=== PATIENT | female | born 1955 | race Hispanic/Latino ===

== ENCOUNTER 2017-02-03 15:25 | Inpatient (IN) | payer OTHER ==
[2017-02-03 15:28] VITALS: BMI 28.3
[2017-02-03 16:17] LABS: ADD MANUAL DIFF? NO
[2017-02-03 16:26] LABS: BASO # 0.03 K/mm3 (0.0-2.0); BASO % 0.4 % (0.0-3.0); EOS # 0.3 (0.0-0.7); EOS % 3.3 % (1.5-5.0); GRAN % 59.3 % (50.0-68.0); HEMATOCRIT 42.4 % (36.0-48.0); LYMPH # 2.5 (1.2-3.4); MEAN CELL VOLUME 86.9 fL (80.0-105.0); MEAN CORPUSCULAR HEMOGLOBIN 28.9 pg (25.0-35.0); MEAN CORPUSCULAR HGB CONC 33.3 g/dl (31.0-37.0); MONO # 0.5 (0.1-0.6); PLATELET COUNT 183 10^3/uL (120.0-450.0); RED CELL DISTRIBUTION WIDTH 13.6 % (11.5-14.5); WHITE BLOOD COUNT 8.1 10^3/ul (4.5-11.0)
[2017-02-03 16:36] LABS: ALB/GLOB RATIO 1.3 (1.1-1.8); ALKALINE PHOSPHATASE 63 U/L (38-133); ALT/SGPT 57 U/L (7-56); AST/SGOT 40 U/L (15-39); BILIRUBIN,TOTAL 0.8 mg/dL (0.2-1.3); BLOOD UREA NITROGEN 14 mg/dL (7-21); CALCIUM 9.6 mg/dL (8.4-10.5); CARBON DIOXIDE 28 mmol/L (21-33); CHLORIDE 102 mmol/L (98-107); GFR AFRICAN-AMERICAN > 60; GLUCOSE,RANDOM 91 mg/dL (70-110); POTASSIUM 3.9 mmol/L (3.6-5.0); SODIUM 141 mmol/L (132-148)
[2017-02-03] MEDS ORDERED: Ceftaroline 600 MG in Sodium Chloride 0.9% 100 ML IVPB STA (16:47)
--- NOTE | 2017-02-03 17:06 | ED PDOC ---
Arrival/HPI - General Chief Complaint: Weakness/Neurological Deficit Time Seen by Provider: 02/03/17 15:37 Historian: Patient - History of Present Illness Narrative History of Present Illness (Text): 02/03/17 17:01 Patient is a 61 yo female who presents to ED with swelling to her face that has progressively worsened. Patient states that 5 days ago on Wednesday she notice a "bump" described as being similar to a pimple to the left side of the bridge of her nose. Denies injury or trauma. Denied visual symptoms or pain with eye movements. States the following day on Wednesday she developed swelling around her left eye, reported a small amount of drainage from the "bump" when she squeezed it. She started to take Augmentin twice a day that day. The following day on Wednesday, she saw her eye doctor as she has a history of ductal blockages reportedly. At that time swelling around left eye had worsened. The next day on Wednesday, she saw a local infectious disease specialist and strated Tetracycline. This morning she woke up and had swelling now to right side of orbit/face. She also states she felt "a little groggy". She denied headache, denies pain with eye movements, denies nasal discharge or bleeding, denies sore throat. Denies numbness or weakness or unsteadiness. Denies chills. Denies nausea or vomiting. Past Medical History - Infectious Disease Hx of Infectious Diseases: None - Cardiac Hx Hypertension: Yes - Psychiatric Hx Substance Use: No - Surgical History Hx Mastectomy: Yes (R) - Anesthesia Hx Anesthesia Reactions: No Hx Malignant Hyperthermia: No Family/Social History Family/Social History: Unknown Family HX Smoking Status: Former Smoker Hx Alcohol Use: Yes Frequency of alcohol use: Socially Hx Substance Use: No Allergies/Home Meds Allergies/Adverse Reactions: Allergies codeine Allergy (Verified 02/03/17 15:28) SHORTNESS OF BREATH Home Medications: Home Meds Medication Instructions Recorded Confirmed Amoxicillin/Clavulanate [Augmentin 875 mg PO BID 02/03/17 02/03/17 875 MG-125 MG Tab] Loratadine [Claritin] 10 mg PO DAILY 02/03/17 02/03/17 Tetracycline HCl 100 mg PO BID 02/03/17 02/03/17 Valsartan [Diovan] 80 mg PO DAILY 02/03/17 02/03/17 Review of Systems - Review of Systems Constitutional: Fatigue. absent: Fevers Eyes: absent: Vision Changes, Photophobia, Eye Pain ENT: Other (redness and swelling to left nasal bridge). absent: Hearing Changes , Sore Throat Respiratory: absent: SOB Cardiovascular: absent: Chest Pain, ALMANZA Gastrointestinal: absent: Abdominal Pain Musculoskeletal: absent: Back Pain Skin: Skin Lesions, Cellulitis Neurological: absent: Headache, Dizziness, Focal Weakness Endocrine: absent: Polydipsia Physical Exam - Physical Exam Narrative Physical Exam (Text): Head: Atraumatic. Normocephalic. Eyes: PERRL. EOMI. Conjunctivae are not pale or injected. No drainage. No tearing. NO PAIN WITH EYE MOVEMENTS. NO LIMITATIONS WITH EYE MOVEMENTS. No proptosis. Visual acuity at baseline. ENT: Mucous membranes are moist and intact. Oropharynx is clear and symmetric. No drooling. No nasal discharge. There is erythema with 5mm firm lesion with no active drainage noted to left of nasal bridge, there is surrounding erythema and edema of the left orbit, as well as right periorbital region. No proptosis. Neck: Supple. Full ROM. No JVD. Cervical lymphadenopathy palpated. Cardiovascular: Regular rate. Regular rhythm. No murmurs, rubs, or gallops. Distal pulses are 2+ and symmetric. Pulmonary/Chest: No evidence of respiratory distress. Extremities: No edema. Skin: Skin exam as above in ENT exam. Neurological: Alert, awake, and oriented to person, place, time, and situation. Normal speech. No facial droop. No cranial nerve deficits. Psychiatric: Good eye contact. Normal interaction, affect, and behavior. 02/03/17 17:09 Vital Signs Reviewed: Yes Vital Signs Temp Pulse Resp BP Pulse Ox 02/03/17 20:15 17 112/73 99 02/03/17 15:26 97.6 F 67 16 146/79 98 Temperature: Afebrile Appearance: Positive for: Non-Toxic Pain Distress: Mild Medical Decision Making ED Course and Treatment: 02/03/17 17:17 Patient with findings consistent with periorbital cellulitis. Currently afebrile although patient has been taking Augmentin and Tetracycline with worsening of symptoms and redness. CT orbits ordered, have consulted ID, and Jude recommended. CT pending. 02/03/17 17:38 CT findings reviewed, suggestive of bilateral periorbital cellulitis, left greater than right. Due to FAILURE OF OUTPATIENT THERAPY and worsening of symptoms, patient will be admitted for infectious disease consultation and iv antibiotics. Case d/w Dr. Elizabeth Kumari, accepts patient to his service. - Lab Interpretations Microbiology Results: Microbiology Results 02/03/17 17:00 Blood Blood Culture - Final NO GROWTH AFTER 5 DAYS 02/03/17 17:00 Blood Gram Stain - Final TEST NOT PERFORMED 02/03/17 16:00 Blood Blood Culture - Final NO GROWTH AFTER 5 DAYS 02/03/17 16:00 Blood Gram Stain - Final TEST NOT PERFORMED 02/03/17 16:21 Face Gram Stain - Final 02/03/17 16:21 Face Wound Culture - Final No growth. Lab Results: 02/03/17 16:00 02/03/17 16:00 Lab Results 02/03/17 16:00: Sodium 141, Potassium 3.9, Chloride 102, Carbon Dioxide 28, Anion Gap 15, BUN 14, Creatinine 0.8, Est GFR ( Amer) > 60, Est GFR (Non- Af Amer) > 60, Random Glucose 91, Calcium 9.6, Total Bilirubin 0.8, AST 40 H, ALT 57 H, Alkaline Phosphatase 63, Total Protein 8.0, Albumin 4.5, Globulin 3.5 , Albumin/Globulin Ratio 1.3 02/03/17 16:00: WBC 8.1, RBC 4.88, Hgb 14.1, Hct 42.4, MCV 86.9, MCH 28.9, MCHC 33.3, RDW 13.6, Plt Count 183, MPV 12.0 H, Gran % 59.3, Lymph % (Auto) 31.0, Holmes % (Auto) 6.0, Eos % (Auto) 3.3, Baso % (Auto) 0.4, Gran # 4.80, Lymph # 2.5 , Holmes # 0.5, Eos # 0.3, Baso # 0.03 - RAD Interpretation Radiology Orders: 02/03/17 15:59 ORBITS/ FACIALS W/O CONTRAST [CT] Stat - Medication Orders Current Medication Orders: Discontinued Medications Ceftaroline Fosamil 600 mg/ (Sodium Chloride) 100 mls @ 100 mls/hr IVPB STAT STA PRN Reason: Protocol Stop: 02/03/17 17:46 Last Admin: 02/03/17 17:05 Dose: 100 mls/hr Ceftaroline Fosamil 600 mg/ (Sodium Chloride) 100 mls @ 100 mls/hr IVPB Q12H MARU PRN Reason: Protocol Last Admin: 02/04/17 05:43 Dose: 100 mls/hr Losartan Potassium (Cozaar) 50 mg PO DAILY MARU Last Admin: 02/04/17 09:07 Dose: Not Given Non-Admin Reason: Patient Refused Pneumococcal Polyvalent Vaccine (Pneumovax 23 Vaccine) 0.5 ml IM .ONCE ONE Stop: 02/03/17 23:21 Disposition/Present on Arrival - Present on Arrival Any Indicators Present on Arrival: No History of DVT/PE: No History of Uncontrolled Diabetes: No Urinary Catheter: No History of Decub. Ulcer: No History Surgical Site Infection Following: None - Disposition Have Diagnosis and Disposition been Completed?: Yes Diagnosis: Cellulitis of periorbital region of both eyes, Failure of outpatient treatment Disposition: HOSPITALIZED Disposition Time: 17:40 Patient Plan: Discharge Condition: FAIR
--- NOTE | 2017-02-03 17:23 | CT ---
PROCEDURE: CT ORBITS WITHOUT CONTRAST. HISTORY: bilateral periorbital redness and swelling. No antecedent history of trauma provided. COMPARISON: None available. TECHNIQUE: Axial CT images of the orbits were obtained. Coronal and sagittal reformats were generated. Radiation dose: Total exam DLP = 776.78 mGy-cm. This CT exam was performed using one or more of the following dose reduction techniques: Automated exposure control, adjustment of the mA and/or kV according to patient size, and/or use of iterative reconstruction technique. FINDINGS: RIGHT ORBIT: RIGHT BONY ORBIT: Unremarkable. RIGHT INTRAORBITAL STRUCTURES: Globe: Normal. Extraocular muscles: Normal. Post septal space: Normal. Optic Nerve: Normal. Lacrimal Apparatus: Normal. RIGHT PRESEPTAL SOFT TISSUES: Mild preseptal soft tissue swelling. LEFT ORBIT: LEFT BONY ORBIT: Normal. LEFT INTRAORBITAL STRUCTURES: Globe: Normal. Extraocular muscles: Normal. Post septal space: Normal Optic Nerve: Normal. . Lacrimal Apparatus: Normal. LEFT PRESEPTAL SOFT TISSUES: Asymmetrical, increased soft tissue swelling left preseptal soft tissues compared to right. OTHER: Chronic left frontal ethmoidal sinus disease. Mild bilateral chronic maxillary sinus disease. Trace sphenoid air cell disease. IMPRESSION: Bilateral preseptal soft tissue swelling. No abnormalities in the globe or postseptal space.
[2017-02-03 20:15] VITALS: O2SAT 99
[2017-02-03 23:19] VITALS: BP 120/80; PULSE 59; RESP 18; TEMP 97.5
[2017-02-03] MEDS ORDERED: Pneumococcal 23-Valent Vaccine IM ONE (23:20)
--- NOTE | 2017-02-04 02:10 | CP.PCM.CON ---
History of Present Illness - History of Present Illness History of Present Illness: Infectious Disease Consultation: February 03, 2017 61 yo female with 4 day history of cellulitis to the left eyelid with swelling and erythema. Patient had Augmentin at home which she took BID. She saw her PMD Dr. Wolfe in [place] who started Tetracycline (she had at most 1 day worth of antibiotics) but cellulitis spread to the right eyelid and the left orbit appeared more swollen. The patient had CT scan in ER that showed no orbital involvement. The patient denies trauma to the area but she did notice a bump on the left eyelid 5 days ago (Wednesday). The patient denies fevers, chills, vision changes. She states that she feels better now and the swelling appears to be less. PMHx: HTN PSHx: mastectomy right breast Allergies: Codiene Social Hx: Former smoker, social EtOH, no illicit drug use Active Medications Ceftaroline Fosamil 600 mg/ (Sodium Chloride) 100 mls @ 100 mls/hr IVPB Q12H MARU PRN Reason: Protocol Losartan Potassium (Cozaar) 50 mg PO DAILY MARU Family Hx: none ROS: Facial swelling left eyelid with spread to right. No fevers, chills, nausea, vomiting, diarrhea, headaches, dizziness, chest pain, abdominal pain, melena, hematuria, hematemesis, hematochezia, depression, anxiety. Past Patient History - Infectious Disease Hx of Infectious Diseases: None - Past Social History Smoking Status: Former Smoker - CARDIAC Hx Cardiac Disorders: Yes Hx Hypertension: Yes - PULMONARY Hx Respiratory Disorders: No - NEUROLOGICAL Hx Neurological Disorder: No - HEENT Hx HEENT Problems: No - RENAL Hx Chronic Kidney Disease: No - ENDOCRINE/METABOLIC Hx Endocrine Disorders: No - HEMATOLOGICAL/ONCOLOGICAL Hx Blood Disorders: Yes Hx Cancer: Yes - INTEGUMENTARY Hx Dermatological Problems: No - MUSCULOSKELETAL/RHEUMATOLOGICAL Hx Musculoskeletal Disorders: No Hx Falls: No - GASTROINTESTINAL Hx Gastrointestinal Disorders: No - GENITOURINARY/GYNECOLOGICAL Hx Genitourinary Disorders: No - PSYCHIATRIC Hx Psychophysiologic Disorder: No - SURGICAL HISTORY Hx Surgeries: Yes Hx Cholecystectomy: Yes Hx Mastectomy: Yes (R) Other/Comment: tram flap 1991, reconstruction 1994. c section x 3 - ANESTHESIA Hx Anesthesia Reactions: No Hx Malignant Hyperthermia: No Meds Allergies/Adverse Reactions: Allergies Allergy/AdvReac Type Severity Reaction Status Date / Time codeine Allergy SHORTNESS Verified 02/03/17 15:28 OF BREATH - Medications Medications: Current Medications Ceftaroline Fosamil 600 mg/ (Sodium Chloride) 100 mls @ 100 mls/hr IVPB Q12H MARU PRN Reason: Protocol Losartan Potassium (Cozaar) 50 mg PO DAILY MARU Physical Exam - Constitutional Appears: Non-toxic, No Acute Distress - Head Exam Additional comments: swelling to left eyelids worse on the lower eyelid with mild erythema. The right lower eyelid with very mild swelling and erythema. - Eye Exam Eye Exam: EOMI, PERRL Pupil Exam: NORMAL ACCOMODATION, PERRL - ENT Exam ENT Exam: Mucous Membranes Moist, Normal External Ear Exam, TM's Normal Bilaterally - Neck Exam Neck exam: Positive for: Full Rom, Normal Inspection - Respiratory Exam Respiratory Exam: Clear to Auscultation Bilateral, NORMAL BREATHING PATTERN. absent: Rales, Rhonchi, Wheezes - Cardiovascular Exam Cardiovascular Exam: REGULAR RHYTHM, RRR, +S1, +S2 - GI/Abdominal Exam GI & Abdominal Exam: Normal Bowel Sounds, Soft. absent: Distended, Tenderness - Extremities Exam Extremities exam: Positive for: full ROM, normal inspection - Neurological Exam Neurological exam: Alert, CN II-XII Intact, Normal Gait, Oriented x3 - Psychiatric Exam Psychiatric exam: Normal Affect, Normal Mood - Skin Skin Exam: Intact, Normal Color Additional comments: except for left eyelid/orbit described above. Results - Vital Signs Recent Vital Signs: Last Vital Signs Temp 97.5 F L 02/03/17 22:46 Pulse 59 L 02/03/17 22:46 Resp 18 02/03/17 22:46 BP 120/80 02/03/17 22:46 Pulse Ox 99 02/03/17 20:15 - Labs Result Diagrams: 02/03/17 16:00 02/03/17 16:00 Assessment & Plan - Assessment and Plan (Free Text) Assessment: 61 yo female with cellulitis of left eyelid and orbit failing Augmentin therapy. The patient was starting to have spread to the right eyelid. CT scan performed did not exhibit orbital cellulitis of the left orbit. The tetracycline did not have a long enough course to be considered a failure of therapy. 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 Continue with Teflaro IV 600mg BID for treatment. Potential discharge in 24 to 48 hours from admission if periorbital cellulitis continues to improve. I would continue the patient with the tetracycline dosing given to her when ready for discharge but would provide a script for Zyvox 600mg PO BID that the patient can fill if cellulitis worsens with the tetracycline treatment. Thank you for allowing me to participate in the care of the patient, we will follow with you.
[2017-02-04] MEDS ORDERED: Ceftaroline 600 MG in Sodium Chloride 0.9% 100 ML IVPB SCH (06:00)
--- NOTE | 2017-02-04 10:28 | HP ---
CHIEF COMPLAINT AND HISTORY OF PRESENT ILLNESS: This is a 61-year-old female who is coming into the hospital with complaints of left eye swelling and erythema. The patient says that she started develo ping cellulitis about 4 days ago and went to her primary care doctor, who had started her on Augmenti n. She then went to infectious disease doctor 3 days ago and she had tetracycline that was added. Y esterday, she said that she was dizzy and she also felt that the redness and swelling had gone to the right side of her face, so she went to the ER for further evaluation. She had a CT scan. The patie nt says that she had noticed a small bump on her left side of her nose about 6 days ago. She says sh star has no fevers, no chills, no nausea, no vomiting, no dysuria, no frequency, no nocturia. All other review of symptoms are within normal limits except as mentioned. ALLERGIES: CODEINE. PAST MEDICAL HISTORY: Hypertension. PAST SURGICAL HISTORY: Mastectomy of the right breast. SOCIAL HISTORY: She is a former smoker. She denies drug use. She drinks socially. HOME MEDICATIONS: Augmentin, tetracycline, losartan. FAMILY HISTORY: Noncontributory. PHYSICAL EXAMINATION: VITAL SIGNS: Temperature is 97.5, pulse of 59, blood pressure is 120/80, respirations 18, O2 saturat ion is 99%. Height is 5 feet 3 inches, weight is 160 pounds, BMI is 28.3. GENERAL: The patient comfortable, in no acute distress. HEENT: In the left eye, there is no erythema. It is improved since yesterday. Anicteric sclerae. Moist mucosa. NECK: No JVD or adenopathy. CARDIAC: S1/S2. No murmurs. No rubs. Regular. RESPIRATORY: Clear to auscultation bilaterally. No wheezes, rales, or rhonchi. Good air entry. ABDOMEN: Bowel sounds are positive, soft, nontender, and nondistended. EXTREMITIES: No edema. Has 1+ pulses. LABORATORIES: Reviewed. White count of 8.1, hemoglobin 14.1. Sodium is 141, potassium is 3.9. The CT of the orbit has been reviewed. There is chronic left frontal, ethmoid sinus disease. There is mild bilateral chronic maxillary sinus disease. ASSESSMENT: 1. Left orbital cellulitis. 2. Hypertension. PLAN: The patient is significantly improved since yesterday. The patient is currently comfortable. The patient is going to be on a heart healthy diet. Dr. Ortiz has evaluated the patient. Initially, I had placed a consult for Dr. Schulz, but I do not feel this is necessary at this point. She is clini kathya improving. She is asking about going home. I will contact Dr. Ortiz to see if she is cleared to go home and continue her antibiotics as an outpatient. I think that she was started on antibiotics a nd just needed time for the infection to respond to the antibiotics. She has responded fairly quickl y. Yunier Kumari MD cc: [id number] TT: 02/04/2017 10:27:10 en
--- NOTE | 2017-02-21 14:23 | DS ---
The patient was discharged home. Please see the H and P that was dictated on 02/04/2017. Yunier Kumari MD cc: [id number] TT: 02/21/2017 14:23:00 mn
== END 2017-02-04 12:12 | disposition home or self-care (01) | DRG 122 ==
LOC: ED 15:25 → ERH 18:00 → 3RSO 20:52
PROVIDERS: ADMIT Internal Medicine Nephrology; ATTEND Internal Medicine Nephrology
DX: H05.012 Cellulitis of left orbit (principal); I10 Essential (primary) hypertension; Z90.11 Acquired absence of right breast and nipple; Z87.891 Personal history of nicotine dependence